=== PATIENT | male | born 1980 | race Two or more races ===

== ENCOUNTER 2018-09-26 10:52 | Emergency (ER) | payer SELFPAY ==
[~2018-09-26] VITALS: Ht 188 cm; Wt 107.0 kg
--- NOTE | 2018-09-26 11:05 | NUR ---
BIB SELF 37 YEAR OLD MALE C/O L KNEE PAIN SINCE LAST WEEK S/O FALLING OFF A LADDER. ALERT AND OREINTED X4 BREATHING EVEN AND UNLABORED WITH NO DISTRESS NOTED. SKIN INTACT. AWAITING TO BE SEEN BY
[2018-09-26] MEDS ORDERED: IBUPROFEN 400 MG TABLET ONE (11:13)
[2018-09-26] MEDS ORDERED: IBUPROFEN 400 MG TABLET PO ONE (11:30)
--- NOTE | 2018-09-26 12:01 | NUR ---
Patient discharged to home in stable condition. Written and verbal after care instructions given. Patient verbalizes understanding of instruction. PLACIDO WRAP AND CRUTCHES GIVEN TO PATIENT.
[2018-09-26 12:13] VITALS: BP 140/80
== END 2018-09-26 12:13 | disposition home or self-care (01) ==
LOC: ER 10:56
DX: S80.02XA Contusion of left knee, initial encounter (principal); W11.XXXA Fall on and from ladder, initial encounter; Y93.89 Activity, other specified; Y92.89 Other specified places as the place of occurrence of the external cause; Y99.8 Other external cause status
CPT/HCPCS: 73564-TC; 73590-TC